=== PATIENT | female | born 1975 | race Caucasian/White ===

== ENCOUNTER 2018-03-30 10:47 | Emergency (ER) | payer MEDICARE, MEDICAID ==
[2018-03-30] MEDS ORDERED: MEDROL DOSEPAK4 MG PO (11:22)
== END 2018-03-30 11:23 | disposition home or self-care (01) ==
LOC: ED 10:47
DX: L25.9 Unspecified contact dermatitis, unspecified cause (principal); Z88.0 Allergy status to penicillin; Z88.2 Allergy status to sulfonamides; Z88.8 Allergy status to other drugs, medicaments and biological substances